=== PATIENT | female | born 1975 | race African-American/Black ===

== ENCOUNTER 2018-01-08 03:24 | Emergency (ER) | payer OTHER ==
[~2018-01-08 03:24] MED LIST: CAPOZ2515 PO; CYCL-36 PO; LORT7.5T3 PO; PRED20 PO
--- NOTE | 2018-01-08 04:36 | PD ---
HPI Chief Complaint vaginal bleeding Date Seen: Jan 08, 2018 Time Seen: 04:15 Travel History International Travel<30 Days: No Contact w/Intl Traveler<30Days: No Known Affected Area: No History of Present Illness HPI 42 yo presents at 33 wks c/o vaginal bleeding after wiping. states last intercourse was 3-4 days ago and she noticed bleeding with wiping after this. pt also c/o increased urinary frequency since midnight, no dysuria. no trauma, no diarrhea, vomiting, no SOB/CP. states has been uncomplicated and care with dr. rey. +FM, no LOF or contractions. History Past Medical History Narrative Medical CHTN ( normotensive with ) Obstetric History Obstetric History Past Surgical History Narrative Surgical X 1 Family History Family History: Negative Social History Alcohol Use: No Tobacco Use: No Substance Abuse: No Allergies-Medications (Allergen,Severity, Reaction): Coded Allergies: penicillin G (Unverified Allergy, Severe, "SWELLING", 02/28/17) Home Meds Active Scripts Hydrocodone-Acetaminophen (Lortab 7.5/500) Tab, 1 TAB PO Q4HPRN, #20 0 Refills FOR PAIN Prov:Shu LEY M.D. 03/31/08 Cyclobenzaprine Hcl (Flexeril) 10 Mg Tab, 10 MG PO TID, #15 0 Refills Prov:Shu LEY M.D. 03/31/08 Prednisone (Deltasone) 20 Mg Tab, 20 MG PO BID, #6 0 Refills Prov:Shu LEY M.D. 03/31/08 Reported Medications Captopril/ Hctz (Capozide 25 Mg/15 Mg) 25 Mg/15 Mg Tab, 1 TAB PO BID, #1 0 Refills 03/31/08 Review of Systems Except as stated in HPI: all other systems reviewed are Neg Physical Exam AFVSS Narrative GENERAL: Well-nourished, well-developed patient. SKIN: Warm and dry. HEAD: Normocephalic and atraumatic. EYES: No scleral icterus. No injection or drainage. ENT: No nasal drainage noted. Mucous membranes pink. Airway patent. NECK: Supple, trachea midline. No JVD. CARDIOVASCULAR: Regular rate and rhythm without murmurs, gallops, or rubs. RESPIRATORY: Breath sounds equal bilaterally. No accessory muscle use. BREASTS: Bilateral exam showed no masses , no retractions, no nipple discharge. ABDOMEN/GI: Abdomen soft, non-tender, bowel sounds present, no rebound, no guarding Gravid to 33 weeks size GENITOURINARY: External Genitalia: intact and normal in appearance Cervix: [-] cl/th SSE: mod amount of old brown blood in vault no active bright red bleeding Presentation: [-] Membranes: [intact FHT's: Category: [-] 1 Baseline: [-] 130s Reactive: [-] Variability: [-] Decels: [-] none EXTREMITIES: No cyanosis or edema. BACK: Nontender without obvious deformity. No CVA tenderness. NEUROLOGICAL: Awake and alert. Motor and sensory grossly within normal limits. Five out of 5 muscle strength in all muscle groups. Normal speech. Data Data Vital Signs Reviewed: Yes [facility] Medical Record Reviewed: Yes Interpretation(s) vaginal bleeding in Plan FHTs wnl no s/sx of active bleeding, recent intercourse d/c home on pelvic rest precautions reviewed Diagnosis Diagnosis: Primary Impression: Vaginal bleeding in Disposition: DISCHARGE HOME Condition: Stable Maureen Morales MD Jan 08, 2018 04:36
== END 2018-01-08 04:48 | disposition home or self-care (01) ==
LOC: HOBED 03:24
DX: O46.93 Antepartum hemorrhage, unspecified, third trimester (principal); Z3A.33 33 weeks gestation of pregnancy
CPT/HCPCS: 59025

== ENCOUNTER 2018-02-16 10:37 | Inpatient (IN) ==
[2018-02-16] MEDS ORDERED: Citric Acid/Sodium Citrate Liq 30 ML UDC PO SCH (10:45)
--- NOTE | 2018-02-16 10:49 | P.OBGPN ---
Queried PDMP and reviewed report
--- NOTE | 2018-02-16 10:53 | P.OP ---
Date of procedure: 02/16/18 Surgeon: Frantz Coreas MD Operation and Findings: Preoperative diagnosis: 1. Intrauterine at 39 weeks 0 days 2. History of desiring repeat 3. Chronic hypertension 4. Advanced maternal age 5. Marginal cord insertion 6. Varicella and rubella nonimmune Postop diagnosis 1. Same as above status post repeat Procedure 1. Repeat low transverse section Surgeon Dr. Frantz Coreas Zoo Keeper: [place] labor and delivery scrub staff Findings: 1. Viable male infant at 1332, Apgars 7 and 8, normal anatomy. weight 3000 g. 2. Intact placenta with three-vessel cord at 1333 3. Normal uterus, fallopian tubes and ovaries bilaterally, minimal omentum adhesed to the fundus, no other intra-abdominal adhesions appreciated. Moderate subcutaneous scar tissue down to the fascia. Anesthesia: Spinal Specimen: Placenta to disposal Estimated blood loss: 800 cc Fluid replacement: 1 L Urine output: [address] [place] DVT prophylaxis: Sequential compression devices throughout the case Antibiotics: 2 g Ancef preoperatively Counts: correct x2 Time out done: yes Disposition: Stable to PACU then Indications: 42-year-old now P2002 was followed throughout the by myself, she had a history of a primary and desired repeat. Please see H&P for further consent and details. Description of procedure: The patient was taken to the operating room and after spinal anesthesia was performed she was positioned and supine position with arms out in a left lateral tilt, the abdomen was prepped and draped in sterile fashion, a Pfannenstiel incision was made and carried down sharply to the fascia through the previous scar, the fascia was nicked on either side of the midline, this was extended bilaterally, the fascia was elevated superiorly and inferiorly and the rectus muscles were sharply dissected off the overlying fascia, the peritoneum was entered digitally and retracted laterally. A bladder flap was developed with Metzenbaum scissors at the lower uterine segment, the hysterotomy was made in the lower uterine segment with a scalpel in a curvilinear fashion, it was extended cephalad-caudad manner, I inserted my hand into the hysterotomy and the head was elevated to the hysterotomy and with fundal pressure was delivered. With gentle downward and upward guidance the anterior and posterior shoulder was delivered, followed by the torso and lower extremities with ease, the infant had spontaneous cry the cord was clamped and cut, the was handed off to nursing staff after delayed cord clamping was allowed. Pitocin was bolused and with uterine massage and cord traction the placenta was delivered, uterus was cleared of clot and debris, the uterus was exteriorized and the hysterotomy was closed with 1 layer, first with 0 locking delayed absorbable suture, and a [id number] at the midline was used for hemostasis using the same suture. The abdomen and hysterotomy were irrigated, inspected, and found to be hemostatic. A small omental adhesion to the fundus was lysed with the Bovie . The fascia was closed from left to right with 0 running delayed absorbable suture. The subcutaneous tissue was irrigated , inspected, hemostasis was appreciated. The space in the subcutaneous tissue was closed with running 2-0 Vicryl. The skin was closed with 3-0 Monocryl and then a dressing was applied and the patient tolerated procedure well was transferred to PACU.
[2018-02-16] MEDS ORDERED: ceFAZolin Inj 2,000 MG in Sodium Chlor 0.9% Inj 80 ML IV.SIG SCH (11:00)
[2018-02-16] MEDS ORDERED: Clindamycin/Dextrose 900 MG/50 ML IVPB IV.SIG PRN (11:04)
[2018-02-16] MEDS ORDERED: Clindamycin 900 mg/NS Premix 900 MG/50 ML PIGGYBACK IV.SIG ONE (11:30)
[2018-02-16 11:36] LABS: Baso % (Auto) 0.4 % (0.0-2.0); Eos # (Auto) 0.1 th/mm3 (0.0-0.4); Eos % (Auto) 1.5 % (0.0-4.0); Hematocrit 37.1 % (35.0-46.0); Lymph # (Auto) 1.8 th/mm3 (1.0-4.8); Lymph % (Auto) 23.2 % (9.0-44.0); Mean Corpuscular HGB Conc 32.3 % (32.0-36.0); Mean Corpuscular Hemoglobin 22.4 pg (27.0-34.0); Mean Corpuscular Volume 69.4 fL (80.0-100.0); Mean Platelet Volume 8.5 fL (7.0-11.0); Mono # (Auto) 0.6 th/mm3 (0.0-0.9); Mono % (Auto) 7.8 % (0.0-8.0); Neut # (Auto) 5.1 th/mm3 (1.8-7.7); Neut % (Auto) 67.1 % (16.0-70.0); Platelet Count 247 th/mm3 (150-450); Red Blood Count 5.35 mil/mm3 (4.00-5.30); Red Cell Distribution Width 14.8 % (11.6-17.2); White Blood Count 7.6 th/mm3 (4.0-11.0)
[2018-02-16 11:45] LABS: Amphetamine Screen,Urine Neg (Neg); Barbiturate Screen,Urine Neg (Neg); Cannabinoid Screen,Urine Neg (Neg); Cocaine Screen,Urine Neg (Neg); Opiate Screen,Urine Neg (Neg)
[2018-02-16] MEDS ORDERED: Phenylephrine/NS 1000 MCG/10ML Syringe IV.PUSH ONE (12:00)
[2018-02-16] MEDS ORDERED: GENTAMICIN IV.SIG ONE (12:00)
[2018-02-16] MEDS ORDERED: SODIUM CHLOR 0.9% IV.SIG ONE (12:00)
[2018-02-16 12:34] LABS: Albumin 2.7 g/dL (3.4-5.0); Anion Gap 10 meq/L (5-15); Aspartate Aminotransferase 29 U/L (15-37); Blood Urea Nitrogen 6 mg/dL (7-18); Calcium 8.5 mg/dL (8.5-10.1); Carbon Dioxide 21.1 meq/L (21.0-32.0); Chloride 108 meq/L (98-107); Glomerular Filtration Rate Greater Than 89 mL/min (>89); Glucose,Random 73 mg/dL (74-106); Potassium 3.5 meq/L (3.5-5.1); Sodium 139 meq/L (136-145)
[2018-02-16 12:35] LABS: Alanine Aminotransferase 38 U/L (10-53)
[2018-02-16 12:37] LABS: Alkaline Phosphatase 143 U/L (45-117); Total Protein 6.4 g/dL (6.4-8.2)
[2018-02-16] MEDS ORDERED: Morphine Sulfate PF Inj 5 MG/10 ML Ampul ONE (12:56)
[2018-02-16] MEDS ORDERED: Naloxone Inj 0.4 MG/ML Vial IV.PUSH PRN (12:59)
[2018-02-16] MEDS ORDERED: Oxytocin 30 Units/500ml Premix 30 UNITS/500 ML BAG IV.SIG ONE (14:27)
[2018-02-16] MEDS ORDERED: Simethicone 80 MG Chew Tablet PO PRN (14:29)
[2018-02-16] MEDS ORDERED: Oxytocin 30 Units/500ml Premix 30 UNITS/500 ML BAG ONE (14:46)
[2018-02-16] MEDS ORDERED: Oxytocin 30 Units/500ml Premix 30 UNITS/500 ML BAG IV.SIG PRN (19:28)
[2018-02-17 07:35] LABS: Baso % (Auto) 0.2 % (0.0-2.0); Eos # (Auto) 0.1 th/mm3 (0.0-0.4); Eos % (Auto) 0.5 % (0.0-4.0); Hematocrit 29.7 % (35.0-46.0); Hemoglobin 9.7 gm/dL (11.6-15.3); Lymph # (Auto) 1.8 th/mm3 (1.0-4.8); Lymph % (Auto) 14.5 % (9.0-44.0); Mean Corpuscular HGB Conc 32.8 % (32.0-36.0); Mean Corpuscular Hemoglobin 22.9 pg (27.0-34.0); Mean Corpuscular Volume 69.8 fL (80.0-100.0); Mean Platelet Volume 8.8 fL (7.0-11.0); Mono # (Auto) 0.9 th/mm3 (0.0-0.9); Neut # (Auto) 9.6 th/mm3 (1.8-7.7); Neut % (Auto) 77.8 % (16.0-70.0); Platelet Count 234 th/mm3 (150-450); Red Blood Count 4.26 mil/mm3 (4.00-5.30); Red Cell Distribution Width 14.7 % (11.6-17.2); White Blood Count 12.3 th/mm3 (4.0-11.0)
[2018-02-17] MEDS: Ibuprofen 600 MG Tablet PO PRN ×3 (10:15→22:11)
--- NOTE | 2018-02-17 10:24 | P.PNOB ---
Subjective Post op day: 1 Interval history: had urinary retention this am but resolved with time and flomax doing well otherwise has showered doing breast and bottle Objective Vital Signs/I&O: Vital Signs 02/16/18 10:57 02/16/18 11:00 02/16/18 14:25 Temperature 98.0 F 97.7 F Pulse Rate 89 70 Respiratory Rate 18 19 Blood Pressure 142/88 H 112/69 02/16/18 14:49 02/16/18 15:05 02/16/18 15:16 Temperature Pulse Rate 70 72 79 Respiratory Rate 18 20 18 Blood Pressure 112/57 L 127/74 02/16/18 15:35 02/16/18 19:52 02/16/18 23:59 Temperature 97.8 F 98.1 F 98.5 F Pulse Rate 77 77 75 Respiratory Rate 18 19 17 Blood Pressure 131/82 147/83 H 141/80 H 02/17/18 04:00 02/17/18 08:00 Temperature 98.5 F 98.3 F Pulse Rate 65 77 Respiratory Rate 16 20 Blood Pressure 111/67 134/83 Intake & Output 02/16/18 02/17/18 02/17/18 18:59 06:59 18:59 Weight 90.718 kg Other: Weight On Admission 90.718 kg Result Diagrams: 02/17/18 06:16 02/16/18 11:39 Objective Remarks: GENERAL: Well-nourished, well-developed patient. CARDIOVASCULAR: Regular rate and rhythm without murmurs, gallops, or rubs. RESPIRATORY: Breath sounds equal bilaterally. No accessory muscle use. ABDOMEN/GI: Abdomen soft, non-tender, bowel sounds present. Incision: Clean, dry and intact. Fundus: Firm, non-tender at umbilicus. GENITOURINARY: Light to moderate bleeding. EXTREMITIES: No cyanosis or edema, non-tender, without signs of DVT. Medications and IVs: Active Medications Citric Acid/Sodium Citrate (Sodium Citrate/Citric Acid Liq) 30 ml PO [employer]NA[employer] ANGEL Stop: 02/20/18 10:44 Last Admin: 02/16/18 12:27 Dose: 30 ml Diphenhydramine HCl (Benadryl) 50 mg PO Q6H PRN PRN Reason: MILD TO MODERATE ITCHING Stop: 02/17/18 12:58 Last Admin: 02/16/18 20:39 Dose: 50 mg Diphenhydramine HCl (Benadryl Inj) 25 mg IV.PUSH Q6H PRN PRN Reason: MILD TO MODERATE ITCHING Stop: 02/17/18 12:58 Diphtheria/Pertussis/Tetanus Vacc (Boostrix Vaccine Inj) 0.5 ml IM .ONCE ONE Stop: 02/17/18 16:01 Lactated Ringer's (Lr 1000 Ml Inj) 1,000 mls @ 150 mls/hr IV.CONT .Q6H40M [facility] Last Admin: 02/16/18 12:27 Dose: 150 mls/hr Lactated Ringer's (Lr 1000 Ml Inj) 1,000 mls @ 100 mls/hr IV.CONT .Q10H [facility] Stop: 02/17/18 15:27 Last Admin: 02/16/18 19:09 Dose: 100 mls/hr Oxytocin (Pitocin 30 Units/Ns 500 Ml Premix) 30 units in 500 mls @ 100 mls/hr IV.SIG PRN PRN PRN Reason: Heavy bleeding Stop: 02/17/18 19:27 Ibuprofen (Motrin) 600 mg PO Q6HR PRN PRN Reason: cramping Last Admin: 02/17/18 10:15 Dose: 600 mg Measles/Mumps/Rubella Vaccine Live (M-M-R Ii Vaccine Inj) 0.5 ml SQ .ONCE ONE Stop: 02/17/18 16:01 [facility]iscellaneous Information [facility]) 1 each OTHER UNSCH PRN PRN Reason: SEE LABEL COMMENTS Stop: 02/17/18 12:58 Miscellaneous Information ([facility] Nursing Information) 1 each OTHER UNSCH PRN PRN Reason: SEE LABEL COMMENTS Stop: 02/17/18 12:58 Naloxone HCl (Narcan Inj) 0.4 mg IV.PUSH UNSCH PRN PRN Reason: SEE LABEL COMMENTS Stop: 02/17/18 12:58 Ondansetron HCl (Zofran Inj) 4 mg IV.PUSH Q6H PRN PRN Reason: NAUSEA OR VOMITING Oxycodone/Acetaminophen (Percocet 5/325 Mg) 1 tab PO Q4H PRN PRN Reason: PAIN SCALE 3 TO 5 Oxycodone/Acetaminophen (Percocet 5/325 Mg) 2 tab PO Q4H PRN PRN Reason: PAIN SCALE 6 TO 10 Simethicone (Mylicon Chew) 80 mg PO QID PRN PRN Reason: FLATULENCE Sodium Chloride (Ns Flush) 2 ml IV.FLUSH BID ANGEL Sodium Chloride (Ns Flush) 2 ml IV.FLUSH PRN PRN PRN Reason: FLUSH AFTER USING IV ACCESS Assessment and Plan - Diagnosis (1) Status post section Code(s): Z98.891 - History of uterine scar from previous surgery Status: Acute - Plan anticipate normal post op/ progress plan for discharge on POD 3
[2018-02-17] MEDS ORDERED: Iron Sucrose Inj 200 MG in Sodium Chlor 0.9% Inj 100 ML IV.SIG ONE (12:00)
[2018-02-17] MEDS ORDERED: Diphtheria/Tetanus/Pertussis Vaccine Inj 0.5 ML Syringe IM ONE (16:00)
[2018-02-17] MEDS ORDERED: Measles/Mumps/Rubella Vaccine Inj 0.5 ML Vial SQ ONE (16:00)
[2018-02-18] MEDS: Ibuprofen 600 MG Tablet PO PRN ×2 (05:04→11:17)
--- NOTE | 2018-02-18 09:43 | P.PNOB ---
Subjective Post op day: 2 Interval history: Feeling well nursing pain controlled desires circ and will do in office with [facility] Objective Vital Signs/I&O: Vital Signs 02/17/18 12:00 02/17/18 20:00 02/17/18 23:47 Temperature 98.1 F 98.1 F Pulse Rate 71 88 Respiratory Rate 18 18 18 Blood Pressure 128/71 136/76 02/18/18 06:12 02/18/18 06:24 02/18/18 07:45 Temperature 97.8 F Pulse Rate 81 Respiratory Rate 16 Blood Pressure 107/64 Result Diagrams: 02/17/18 06:16 02/16/18 11:39 Objective Remarks: GENERAL: Well-nourished, well-developed patient. CARDIOVASCULAR: Regular rate and rhythm without murmurs, gallops, or rubs. RESPIRATORY: Breath sounds equal bilaterally. No accessory muscle use. ABDOMEN/GI: Abdomen soft, non-tender, bowel sounds present. Incision: Clean, dry and intact. Fundus: Firm, non-tender at umbilicus. GENITOURINARY: Light to moderate bleeding. EXTREMITIES: No cyanosis or edema, non-tender, without signs of DVT. Medications and IVs: Active Medications Citric Acid/Sodium Citrate (Sodium Citrate/Citric Acid Liq) 30 ml PO MOHS SURGEON [facility] Stop: 02/20/18 10:44 Last Admin: 02/16/18 12:27 Dose: 30 ml Lactated Ringer's (Lr 1000 Ml Inj) 1,000 mls @ 150 mls/hr IV.CONT .Q6H40M [facility] Last Admin: 02/16/18 12:27 Dose: 150 mls/hr Ibuprofen (Motrin) 600 mg PO Q6HR PRN PRN Reason: cramping Last Admin: 02/18/18 05:04 Dose: 600 mg Ondansetron HCl (Zofran Inj) 4 mg IV.PUSH Q6H PRN PRN Reason: NAUSEA OR VOMITING Oxycodone/Acetaminophen (Percocet 5/325 Mg) 1 tab PO Q4H PRN PRN Reason: PAIN SCALE 3 TO 5 Last Admin: 02/18/18 05:05 Dose: 1 tab Oxycodone/Acetaminophen (Percocet 5/325 Mg) 2 tab PO Q4H PRN PRN Reason: PAIN SCALE 6 TO 10 Last Admin: 02/17/18 22:12 Dose: 2 tab Simethicone (Mylicon Chew) 80 mg PO QID PRN PRN Reason: FLATULENCE Sodium Chloride (Ns Flush) 2 ml IV.FLUSH BID ANGEL Sodium Chloride (Ns Flush) 2 ml IV.FLUSH PRN PRN PRN Reason: FLUSH AFTER USING IV ACCESS Assessment and Plan - Diagnosis (1) Status post section Code(s): Z98.891 - History of uterine scar from previous surgery Status: Acute - Plan anticipate normal post op/ progress plan for discharge on POD 3 anticipate discharge on Monday RTO 1 week
--- NOTE | 2018-02-21 14:07 | MH ---
cc: Frantz Coreas MD DATE OF ADMISSION: 02/16/2018 CHIEF COMPLAINT: Scheduled repeat . HISTORY OF PRESENT ILLNESS: This patient is a 42-year-old, G2, P1-0-0-1, who will be at 39 weeks and 0 days by her sure LMP, consistent with an 8-week ultrasound, with estimated due date of 02/23/2018, admitted for repeat section. In the addendum to the history and physical, we added the separate note at the time of her admission. Her has been complicated by chronic hypertension, obesity, history of x 1, advanced maternal age, marginal versus velamentous cord insertion and varicella and rubella nonimmune status. PAST MEDICAL HISTORY: 1. Obesity. 2. Chronic hypertension. ALLERGIES: PENICILLIN. MEDICATIONS: vitamins, baby aspirin. PAST SURGICAL HISTORY: in 1997 and cholecystectomy. OBSTETRIC HISTORY: 12/1997, primary at 40 weeks, per the patient was spontaneous labor with arrest of dilation, unsure to what degree. She said she may have made it to complete and her cervix closed back up. Delivery of a male weighing 7 pounds 7 ounces. Otherwise, uncomplicated. GYNECOLOGIC HISTORY: LMP 05/19/2017. FAMILY HISTORY: No pertinent positive family. SOCIAL HISTORY: Denies tobacco, alcohol or drug use. PHYSICAL EXAMINATION: Based on exam from 02/06/2018: VITAL SIGNS: Blood pressure 120/70, weight 202 pounds. GENERAL: Alert and oriented x 3, resting comfortably in the bed. ABDOMEN: Soft, gravid, nontender, nondistended. CARDIOVASCULAR: Regular rate and rhythm. No murmurs, rubs or gallop. PULMONARY: Clear to auscultation bilaterally. GENITOURINARY: Deferred. EXTREMITIES: No clubbing, cyanosis or edema. LABORATORIES ON 07/11/2017: Blood type A positive, antibody negative. Hemoglobin 11.7. Varicella nonimmune, rubella nonimmune, VDRL nonreactive. Hepatitis B surface antigen negative, 24-hour urine protein 123 mg on 07/15/2017. Urine drug screen negative. Platelets 356. TSH 3.43, sickle cell screen negative. Gonorrhea and chlamydia negative. Declined cystic fibrosis screening. NIPS negative. Repeat hemoglobin on 11/29/2017, 11.2. One-hour Glucola 104, GBS positive. ASSESSMENT AND PLAN: This patient is a 42-year-old 2, para 1-0-0-1, who will be at 39 weeks and 0 days by last menstrual period, consistent with an 8-week ultrasound, admitted for scheduled repeat . 1. Intrauterine . Will be placed on monitoring at time of her presentation. Estimated weight on 01/30/2018 equals 2943 grams, 63rd percentile, placenta anterior. 2. History of section, desiring repeat. Discussed risks, benefits and expected outcomes of the procedure. The patient signed consent. Does not desire tubal ligation. will have a vasectomy. The patient will need gentamicin and clindamycin preoperatively due to her PENICILLIN ALLERGY for surgical preoperative prophylaxis. 3. Chronic hypertension. Was on 2 antihypertensives prior to , discontinued at the beginning and has not required any throughout the . Baseline 24-hour urine protein on 07/15/2017 of 123 mg. We will continue to watch closely. She has had routine testing and growths throughout the have all been normal and reassuring. 4. Obesity, passed 1 hour GTT. 5. Advanced maternal age, normal anatomy and negative noninvasive screening. 6. Varicella and rubella nonimmune. We will give vaccine . 7. Possible velamentous cord insertion, has been getting routine growths. 8. Group B Strep positive status: irrelevant as planned . MD WILLIAM Adams/JIL , 09:10 PM , 09:46 PM TONI
== END 2018-02-18 15:10 | disposition home or self-care (01) ==
LOC: H2E 10:37 → H1EA 15:41
PROVIDERS: ADMIT Obstetrics & Gynecology; ATTEND Obstetrics & Gynecology